=== PATIENT | female | born 1985 | race Caucasian/White ===

== ENCOUNTER 2017-09-22 20:02 | Emergency (ER) | payer MEDICAID ==
[~2017-09-22] VITALS: Ht 162.6 cm; Wt 75.0 kg
[~2017-09-22 20:02] MED LIST: NORCO; PHENERGAN; TRAMADOL; [UNRECOGNIZED DRUG - OTHER]
[2017-09-22] MEDS ORDERED: ACETAMINOPHEN 500MG TABLET PO ONE (20:30)
[2017-09-22] MEDS ORDERED: MORPHINE SULFATE 10 MG/ML CPJ IV ONE (22:45)
[2017-09-22] MEDS ORDERED: SODIUM CHLORIDE 0.9% 500 ML IV ONE (22:45)
[2017-09-22] MEDS ORDERED: ONDANSETRON HCL 4MG/2ML VIAL IV ONE (22:45)
[2017-09-22] MEDS ORDERED: KETOROLAC 30MG/ML VIAL IV ONE (22:45)
[2017-09-23] MEDS ORDERED: MORPHINE SULFATE 10 MG/ML CPJ IV ONE (00:30)
[2017-09-23 01:15] VITALS: BP 122/85
== END 2017-09-23 01:26 | disposition home or self-care (01) ==
LOC: ER 22:08
DX: G43.909 Migraine, unspecified, not intractable, without status migrainosus (principal); Z88.6 Allergy status to analgesic agent
CPT/HCPCS: 81025; 96361; 96374; 96375; 96376; 99285; J1885; J2270; J2405; J7030; J7040; Z7610

== ENCOUNTER 2018-02-14 20:24 | Emergency (ER) | payer MEDICAID ==
[~2018-02-14] VITALS: Ht 162.6 cm; Wt 80.0 kg
[2018-02-14 22:20] VITALS: BP 115/77
[2018-02-14] MEDS ORDERED: SODIUM CHLORIDE 0.9% 1,000 ML IV ONE (23:37)
[2018-02-14] MEDS ORDERED: METOCLOPRAMIDE HCL 10MG/2ML VIAL IV ONE (23:45)
[2018-02-14] MEDS ORDERED: DIPHENHYDRAMINE 50MG/ML VIAL IV ONE (23:45)
[2018-02-14 23:52] LABS: CLARITY URINE CLEAR (CLEAR); COLOR URINE YELLOW (YELLOW); KETONES URINE NEGATIVE (NEGATIVE); LEUKOCYTE ESTERASE URINE TRACE (NEGATIVE); NITRITE URINE NEGATIVE (NEGATIVE); OCCULT BLOOD URINE NEGATIVE (NEGATIVE); PH URINE 5.5 (4.5-8.0); PROTEIN URINE NEGATIVE (NEGATIVE); SPECIFIC GRAVITY URINE 1.019 (1.005-1.030); UROBILINOGEN URINE 0.2 E.U./dL (0.2-1.0)
== END 2018-02-15 10:48 | disposition left against medical advice (07) ==
LOC: ER 20:25
DX: G43.909 Migraine, unspecified, not intractable, without status migrainosus (principal); Z88.8 Allergy status to other drugs, medicaments and biological substances
CPT/HCPCS: 81003; 81025; 99283; J7030; Z7610